=== PATIENT | male | born 1940 | race Caucasian/White ===

== ENCOUNTER 2021-09-14 12:13 | Emergency (ER) | payer MEDICARE, OTHER ==
[~2021-09-14] VITALS: Ht 167 cm; Wt 65.0 kg
[2021-09-14 13:28] LABS: BASOPHILS % (AUTO) 1 % (0-10); EOSINOPHILS # (AUTO) 0.1 10^3/uL (0.0-0.3); EOSINOPHILS % (AUTO) 1 % (0-10); HEMATOCRIT 43 % (40-54); HEMOGLOBIN 15.2 g/dL (13.3-17.7); LYMPHOCYTES # (AUTO) 0.6 10^3/uL (1.0-4.0); LYMPHOCYTES % (AUTO) 11 % (12-44); MEAN CORPUSCULAR HEMOGLOBIN 35 pg (25-34); MEAN CORPUSCULAR HGB CONC 35 g/dL (32-36); MEAN CORPUSCULAR VOLUME 100 fL (80-99); MEAN PLATELET VOLUME 9.2 fL (9.0-12.2); MONOCYTES # (AUTO) 0.6 10^3/uL (0.0-1.0); MONOCYTES % (AUTO) 12 % (0-12); NEUTROPHILS % (AUTO) 76 % (42-75); PLATELET COUNT 235 10^3/uL (130-400); WHITE BLOOD COUNT 5.2 10^3/uL (4.3-11.0)
[2021-09-14 13:37] LABS: ALBUMIN 3.9 GM/DL (3.2-4.5); CHLORIDE 101 MMOL/L (98-107); POTASSIUM 3.6 MMOL/L (3.6-5.0); SODIUM 137 MMOL/L (135-145)
[2021-09-14 13:40] LABS: GLUCOSE 80 MG/DL (70-105)
[2021-09-14 13:41] LABS: CARBON DIOXIDE 22 MMOL/L (21-32)
[2021-09-14 13:42] LABS: BILIRUBIN,TOTAL 2.1 MG/DL (0.1-1.0)
[2021-09-14 13:43] LABS: ALKALINE PHOSPHATASE 77 U/L (40-136)
[2021-09-14 13:44] LABS: CREATININE SERUM 0.92 MG/DL (0.60-1.30); GFR ESTIMATED 84
[2021-09-14 13:45] LABS: BUN/CREATININE RATIO 11
[2021-09-14 13:46] LABS: ALANINE AMINOTRANSFERASE 18 U/L (0-55); MAGNESIUM 1.8 MG/DL (1.6-2.4)
[2021-09-14 14:07] LABS: TSH (THYROID ANALYZER) 1.84 UIU/ML (0.35-4.94)
[2021-09-14] MEDS ORDERED: LACTATED RINGERS 1,000 ML IV ONE (14:15)
[2021-09-14 14:55] LABS: CLARITY,URINE CLEAR; COLOR,URINE YELLOW; GLUCOSE, URINE (UA) NEGATIVE (NEGATIVE); KETONES,URINE 2+ (NEGATIVE); LEUKOCYTE ESTERASE ,URINE 1+ (NEGATIVE); NITRITE,URINE NEGATIVE (NEGATIVE); PROTEIN,URINE NEGATIVE (NEGATIVE)
--- NOTE | 2021-09-14 14:55 | ED General ---
General Chief Complaint: General Problems/Pain Stated Complaint: UNABLE TO WALK Nursing Triage Note: ARRIVED VIA WC TO ROOM 02 WITH SON. SON STATES OVER THE LAST TWO WEEKS PT HAS BECAME WEAKER AND HE IS NO LONGER ABLE TO TAKE CARE OF HIM. THEY ARE WANTING REHAB OR HOME PLACEMENT. SON ALSO STATES PT HAS BEEN A ALCOHOLIC HIS WHOLE LIFE AND RECENTLY QUIT DRINKING 2-4 WEEKS AGO ALSO. Source of Information: Patient, Family Exam Limitations: No Limitations History of Present Illness Date Seen by Provider: Sep 14, 2021 Time Seen by Provider: 12:40 Initial Comments This 81-year-old gentleman is brought to the emergency room by his son with concerns about general decline over the past few months. He has progressive weakness and is no longer able to ambulate independently whereas he had previously been ambulating with a walker. He also has history of alcoholism and recently stopped drinking a few weeks ago. His son will not supply him with any alcohol. Patient gives a history of cervical spinal stenosis as well as multiple traumatic injuries from a fall several years ago. He reportedly had a shoulder replacement and has hardware in his left shoulder. He also had surgery on his right ankle and a pelvic fracture. He reports history of significant spinal stenosis. He does have some issues with bowel and bladder incontinence which is largely due to his inability to get to a bathroom. He has chronic deficits of strength and range of motion in his left arm due to the traumatic injury. The son is having a hard time taking care of him at home as patient is no longer able to manage some of his ADLs such as bathing and dressing. Allergies and Home Medications Allergies Coded Allergies: No Known Drug Allergies (Unverified , 09/14/21) Patient Home Medication List Home Medication List Reviewed: Yes Review of Systems Review of Systems Constitutional: see HPI, weakness EENTM: no symptoms reported Respiratory: no symptoms reported Cardiovascular: no symptoms reported Gastrointestinal: no symptoms reported Genitourinary: see HPI Musculoskeletal: see HPI Skin: no symptoms reported Psychiatric/Neurological: See HPI Hematologic/Lymphatic: No Symptoms Reported Immunological/Allergic: no symptoms reported Past Sitxvzw-Wicavo-Lakyaj Hx Patient Social History Tobacco Use?: No Smokeless Tobacco Frequency: Current Everyday User Use of E-Cig and/or Vaping dev: No Substance use?: No Alcohol Use?: No (Prior Daily drinker) Past Medical History Surgeries: Yes Orthopedic (Left shoulder replacement) Respiratory: No Cardiac: No Neurological: Yes (Spinal stenosis) Genitourinary: Yes (Incontinence) Gastrointestinal: Yes (Incontinence) Musculoskeletal: Yes (Spinal stenosis, left shoulder replacement) Chronic Back Pain HEENT: No Cancer: No Psychosocial: No Integumentary: No Physical Exam Vital Signs Vital Signs - First Documented 09/14/21 12:20 Temp 36.3 Pulse 105 Resp 16 B/P (MAP) 123/92 (102) Pulse Ox 96 O2 Delivery Room Air Capillary Refill : Less Than 3 Seconds Height, Weight, BMI Height: '" Weight: lbs. oz. kg; 23.00 BMI Method: General Appearance: No Apparent Distress, WD/WN, Thin HEENT: PERRL/EOMI, Normal ENT Inspection, Other (Oropharynx somewhat dry) Neck: Normal Inspection; No JVD Respiratory: Lungs Clear, Normal Breath Sounds, No Accessory Muscle Use Cardiovascular: Regular Rate, Rhythm, No Edema, No Murmur Gastrointestinal: Normal Bowel Sounds, Non Tender, Soft; No Distended Extremity: Normal Inspection, No Pedal Edema, Other (Strength and range of motion restricted in the left shoulder chronically) Neurologic/Psychiatric: Alert, Oriented x3, No Motor/Sensory Deficits, handbag finisher II- XII Norm as Tested, Other (Affect somewhat flat and mood somewhat depressed) Skin: Normal Color, Warm/Dry Progress/Results/Core Measures Suspected Sepsis SIRS Temperature: Pulse: 105 Respiratory Rate: 16 Laboratory Tests 09/14/21 13:10: White Blood Count 5.2 Blood Pressure 123 /92 Mean: 102 Laboratory Tests 09/14/21 13:10: Creatinine 0.92, Platelet Count 235, Total Bilirubin 2.1H Results/Orders Lab Results Laboratory Tests Test 09/14/21 13:10 09/14/21 14:48 Range/Units White Blood Count 5.2 4.3-11.0 10^3/uL Red Blood Count 4.33 4.30-5.52 10^6/uL Hemoglobin 15.2 13.3-17.7 g/dL Hematocrit 43 40-54 % Mean Corpuscular Volume 100 H 80-99 fL Mean Corpuscular Hemoglobin 35 H 25-34 pg Mean Corpuscular Hemoglobin Concent 35 32-36 g/dL Red Cell Distribution Width 13.1 10.0-14.5 % Platelet Count 235 130-400 10^3/uL Mean Platelet Volume 9.2 9.0-12.2 fL Immature Granulocyte % (Auto) 0 % Neutrophils (%) (Auto) 76 H 42-75 % Lymphocytes (%) (Auto) 11 L 12-44 % Monocytes (%) (Auto) 12 0-12 % Eosinophils (%) (Auto) 1 0-10 % Basophils (%) (Auto) 1 0-10 % Neutrophils # (Auto) 4.0 1.8-7.8 10^3/uL Lymphocytes # (Auto) 0.6 L 1.0-4.0 10^3/uL Monocytes # (Auto) 0.6 0.0-1.0 10^3/uL Eosinophils # (Auto) 0.1 0.0-0.3 10^3/uL Basophils # (Auto) 0.0 0.0-0.1 10^3/uL Immature Granulocyte # (Auto) 0.0 0.0-0.1 10^3/uL Sodium Level 137 135-145 MMOL/L Potassium Level 3.6 3.6-5.0 MMOL/L Chloride Level 101 98-107 MMOL/L Carbon Dioxide Level 22 21-32 MMOL/L Anion Gap 14 5-14 MMOL/L Blood Urea Nitrogen 10 7-18 MG/DL Creatinine 0.92 0.60-1.30 MG/DL Estimat Glomerular Filtration Rate 84 BUN/Creatinine Ratio 11 Glucose Level 80 70-105 MG/DL Calcium Level 9.0 8.5-10.1 MG/DL Corrected Calcium 9.1 8.5-10.1 MG/DL Magnesium Level 1.8 1.6-2.4 MG/DL Total Bilirubin 2.1 H 0.1-1.0 MG/DL Aspartate Amino Transf (AST/SGOT) 37 H 5-34 U/L Alanine Aminotransferase (ALT/SGPT) 18 0-55 U/L Alkaline Phosphatase 77 40-136 U/L C-Reactive Protein High Sensitivity 1.22 H 0.00-0.50 MG/DL Total Protein 7.0 6.4-8.2 GM/DL Albumin 3.9 3.2-4.5 GM/DL TSH [place] Testing 1.84 0.35-4.94 UIU/ML Serum Alcohol < 10 <10 MG/DL Urine Color YELLOW Urine Clarity CLEAR Urine pH 6.0 5-9 Urine Specific [place] 1.020 1.016-1.022 Urine Protein NEGATIVE NEGATIVE Urine Glucose (UA) NEGATIVE NEGATIVE Urine Ketones 2+ H NEGATIVE Urine Nitrite NEGATIVE NEGATIVE Urine Bilirubin 1+ H NEGATIVE Urine Urobilinogen 2.0 < = 1.0 MG/DL Urine Leukocyte Esterase 1+ H NEGATIVE Urine RBC (Auto) TRACE-I H NEGATIVE Urine RBC NONE /HPF Urine WBC 10-25 H /HPF Urine Squamous Epithelial Cells NONE /HPF Urine Renal Epithelial Cells NONE /HPF Urine Crystals NONE /LPF Urine Bacteria FEW H /HPF Urine Casts NONE /LPF Urine Mucus SMALL H /LPF Urine Culture Indicated YES My Orders Orders - FAITH DENISE MD Ed Iv/Invasive Line Start (09/14/21 12:40) Alcohol (09/14/21 12:40) Cbc With Automated Diff (09/14/21 12:40) Comprehensive Metabolic Panel (09/14/21 12:40) Hs C Reactive Protein (09/14/21 12:40) Magnesium (09/14/21 12:40) Thyroid Analyzer (09/14/21 12:40) Ua Culture If Indicated (09/14/21 12:40) Lactated Ringers (Lr 1000 Ml Iv Solution (09/14/21 14:15) Urine Culture (09/14/21 14:48) Ceftriaxone 1 Gm Pre-Mix (Rocephin 1 Gm (09/14/21 16:30) Medications Given in ED Current Medications Medications Dose Ordered Sig/Porsche Route Start Time Stop Time Status Last Admin Dose Admin Lactated Ringer's 1,000 ml @ 0 mls/hr Q0M ONCE IV 09/14/21 14:15 09/14/21 14:16 DC 09/14/21 14:18 1,000 MLS/HR Vital Signs/I&O 09/14/21 09/14/21 12:20 17:31 Temp 36.3 Pulse 105 95 Resp 16 16 B/P (MAP) 123/92 (102) 143/100 Pulse Ox 96 96 O2 Delivery Room Air Room Air Capillary Refill : Less Than 3 Seconds Blood Pressure Mean: 102 Progress Note #1: Time: 14:57 Progress Note Work-up was relatively unremarkable. Urinalysis is still pending. He is receiving a liter of IV fluids to help him produce urine. The acute rehab staff are assessing the patient to determine his eligibility for the rehab unit. Progress Note #2: Time: 16:35 Progress Note Work-up revealed urinary tract infection but was otherwise relatively unremarkable. I discussed the situation with the Acute Rehab Unit, but they did not believe he would meet criteria for admission there. I discussed the case with Dr. Arzate. Given patient's apathy and concerns for worsening dementia and/or depression, it seems most appropriate to have him admitted at [facility] where he can have a Senior [facility]al Health evaluation. Patient and his son are both agreeable to this plan. He has been given Rocephin for urinary tract infection. Departure Impression Primary Impression: Urinary tract infection Qualified Codes: N39.0 - Urinary tract infection, site not specified Additional Impressions: Debility Spinal stenosis Qualified Codes: M48.00 - Spinal stenosis, site unspecified Generalized weakness Disposition: 02 XFER SHT-TRM HOSP Condition: Stable Transfer Transfer Reason: Exceeds level of care (Transfer for SBH evaluation) Time Spoke to Accepting Phy: 16:30 Transfer Progress Notes Transfer to [facility] where he may receive evaluation for [facility] Behavior[facility] Health was excepted by Dr. Arzate. Transfer Time: 17:31 Transfer Facility: [facility] Method of Transfer: EMS Departure-Patient Inst. Decision time for Depature: 16:38 Referrals: [facility]/FATIMAH (PCP/Family) Primary Care Physician Copy Copies To 1: [facility]/FAITH SALVADOR MD Sep 14, 2021 14:55
[2021-09-14 15:02] LABS: BACTERIA,URINE FEW /HPF; BILIRUBIN,URINE 1+ (NEGATIVE)
[2021-09-14] MEDS ORDERED: cefTRIAXone 1 GM PRE-MIX 50 ML IV STA (16:30)
[2021-09-14 17:31] VITALS: BP 143/100
== END 2021-09-14 17:31 | disposition short-term general hospital (02) ==
LOC: ER 12:15
DX: N39.0 Urinary tract infection, site not specified (principal); M48.00 Spinal stenosis, site unspecified; F17.200 Nicotine dependence, unspecified, uncomplicated
CPT/HCPCS: 80053; 81000; 83735; 84443; 85025; 86141; 87088; 99284; G0480; 36415; 80320